=== PATIENT | female | born 1970 | race Caucasian/White ===

== ENCOUNTER 2016-09-10 20:11 | Emergency (ER) | payer OTHER ==
[2016-09-10 20:30] VITALS: RESP 18; TEMP 98.2; O2SAT 99
[2016-09-10] MEDS ORDERED: KETOROLAC TROMETHAMINE 30 MG/ML SOL IM ONE (20:32)
[2016-09-10] MEDS ORDERED: KETOROLAC TROMETHAMINE 30 MG/ML SOL ONE (20:35)
[2016-09-10 21:08] VITALS: BP 125/51; PULSE 73
== END 2016-09-10 21:02 | disposition home or self-care (01) | DRG 556 ==
LOC: ED 20:11
DX: M25.551 Pain in right hip (principal); R42 Dizziness and giddiness; V18.4XXA Pedal cycle driver injured in noncollision transport accident in traffic accident, initial encounter
CPT/HCPCS: 73501; 96372; 99283; 99284; J1885

== ENCOUNTER 2017-11-30 08:08 | Day surgery (SDC) | payer BC, OTHER ==
[2017-11-30] MEDS ORDERED: PROPOFOL 500 MG/50 ML EMU IV ONE (08:09)
[2017-11-30 11:47] VITALS: BP 133/77; PULSE 65; RESP 20; TEMP 97.5; O2SAT 98
== END 2017-11-30 10:45 | disposition home or self-care (01) ==
LOC: SURG 08:08
PROVIDERS: ATTEND Surgery
DX: Z12.11 Encounter for screening for malignant neoplasm of colon (principal); Z86.010 Personal history of colon polyps; E13.9 Other specified diabetes mellitus without complications
CPT/HCPCS: J2001; J2704